=== PATIENT | female | born 1970 | race Caucasian/White ===

== ENCOUNTER 2017-05-31 20:36 | Observation (INO) ==
[2017-05-31] MEDS ORDERED: Isovue-370 500 ML INFUS..BTL IV ONE (20:50)
[2017-05-31] MEDS ORDERED: *HR* OxyCODONE/APAP 5/325 TABLET PO ONE (20:51)
[2017-05-31] MEDS ORDERED: Ondansetron 4 MG/2 ML VIAL IVP ONE (20:51)
[2017-05-31] MEDS ORDERED: *HR* LORazepam 2 MG/ML VIAL IVP ONE (20:51)
[2017-05-31 20:57] LABS: Bilirubin,Urine Small (Negative); Blood,Urine Moderate (Negative); Color,Urine Yellow (Yellow); Glucose,Urine (UA) Normal (Normal); Ketones,Urine >=160 mg/dL (Negative); Leukocyte Esterase,Urine Negative (Negative); Nitrite,Urine Negative (Negative); Protein,Urine 100 mg/dL (Neg-Trace); Specific Gravity,Urine > 1.030 (1.010-1.025); Urobilinogen,Urine Normal (Normal)
[2017-05-31 20:59] LABS: Bacteria,Urine Few per hpf (None-Few); Hyaline Casts,Urine Few per lpf (None-Few); Squamous Epithelial Cell,Urine Many per lpf (None-Few)
[2017-05-31] MEDS ORDERED: 0.9 % Sodium Chloride 1,000 ML IVC SCH (21:00)
[2017-05-31 21:01] LABS: Clarity,Urine Slightly Hazy (Clear)
[2017-05-31 21:03] LABS: RBC,Urine 0-3 per hpf (0-3)
[2017-05-31 21:35] LABS: Basophils # 0.1 K/mcL (0.0-0.2); Basophils % 0.7 %; Eosinophils % 0.2 %; Hematocrit 34.1 % (35.3-44.9); Hemoglobin 10.3 g/dL (11.5-15.4); Immature Granulocytes % 0.7 % (0-4); Lymphocytes # 1.3 K/mcL (0.6-4.6); Lymphocytes % 10.7 %; Mean Corpuscular HGB Conc 30.2 g/dL (31.6-35.5); Mean Corpuscular Hemoglobin 22.4 pg (28.0-33.3); Mean Corpuscular Volume 74.1 fL (83.0-100.0); Mean Platelet Volume 9.4 fL (9.4-12.4); Monocytes # 1.3 K/mcL (0.0-1.3); Monocytes % 10.6 %; Neutrophils # 9.5 K/mcL (1.6-8.9); Platelet Count 497 K/mcL (140-400); Red Cell Distribution Width 18.4 % (11.5-14.5); Segmented Neutrophils % 77.1 %
[2017-05-31 21:54] LABS: Alanine Aminotransferase 13 Units/L (7-52); Albumin 3.8 g/dL (3.5-5.7); Albumin/Globulin Ratio 1.1 (1.1-2.2); Alkaline Phosphatase 83 Units/L (34-104); Amylase 27 Units/L (29-103); Aspartate Amino Transferase 30 Units/L (13-39); BUN/Creatinine Ratio 24 (6-26); Bilirubin,Direct 0.3 mg/dL (0.0-0.2); Bilirubin,Indirect 0.3 mg/dL (0.0-1.2); Bilirubin,Total 0.6 mg/dL (0.3-1.0); Blood Urea Nitrogen 13 mg/dL (6-20); Carbon Dioxide 20 mEq/L (23-29); Chloride 101 mEq/L (98-107); Globulin 3.6 g/dL (2.4-3.5); Glucose 89 mg/dL (70-105); Lipase 8 Units/L (11-82); Osmolality,Calculated 282 (280-300); Potassium 4.2 mEq/L (3.5-5.1); Sodium 136 mEq/L (136-145); Total Protein 7.4 g/dL (6.4-8.9); eGFR For African Americans > 60 (> 60); eGFR For Non-African Americans > 60 (> 60)
--- NOTE | 2017-06-01 00:03 | Emergency Department Note ---
Disposition Clinical Impression: Abdominal pain Qualifiers: Abdominal location: generalized Qualified Code(s): R10.84 - Generalized abdominal pain Disposition: Admitted As Inpatient Condition: Undetermined Abdominal Pain HPI - General Chief Complaint: ED Abdominal Pain Stated Complaint: ABD Pain Time Seen by Provider: 05/31/17 20:48 Source: patient Nursing Notes Reviewed: Yes Vital Signs Reviewed: Yes - History of Present Illness HPI Narrative: This is a 47-year-old female presents with concern for abdominal pain. He onset of her symptoms was 7 days ago. She admits to intermittent crampy abdominal pain which comes and goes in a migratory fashion across her abdomen. She has no vomiting of blood or hematochezia. She has no fever or chills. She has no history of vaginal discharge or urinary symptoms. General: No acute distress HEENT: Pupils equal and reactive to light, extraoccular muscle movement is normal, TMS are clear bilaterally. Heart: RRR, No murmor rub or gallop Lungs: lungs clear, no wheezing, rales or ronchi. ABD: Diffusely tender without peritonitis Extremities: No cyanosis, clubbing or edema Neuro: CN 2-12 in tact, no focal deficit. strength 5/5. 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 Patient will be admitted for pain control pending transfer to the [facility]. I did speak with the transfer nurse to stated there are no available beds at the [facility] at this time and will call back at 3 AM and follow- up with the patient on the floor and coordinate transfer once a bed is available. Again the patient has been referred to the [facility] for gynecological oncological evaluation which we do not offer here. Pain Scale: 5 - Related Data Home Medications Medication Instructions Recorded Confirmed No Known Home Drugs 06/01/17 06/01/17 Allergies Allergy/AdvReac Type Severity Reaction Status Date / Time No Known Allergies Allergy Verified 05/31/17 20:40 All systems ED: reviewed and negative except as stated. Review of Systems: As Per HPI Abdominal Pain PMH - Past Medical History Medical history: Reports: migraine Female Surgical History: Reports: no surgical history Psychiatric history: Reports: depression - Social History Smoking status: Never smoker Alcohol use: Reports: none Drug use: Reports: none Physical Exam - General Limitations: no limitations General appearance: alert, in no apparent distress Course Vital Signs Temperature 98.9 F 05/31/17 20:37 Pulse Rate 84 05/31/17 20:37 Respiratory Rate 16 05/31/17 20:37 Blood Pressure 128/84 05/31/17 20:37 O2 Sat by Pulse Oximetry 99 05/31/17 20:37 Temperature 98.7 F 06/01/17 19:48 Pulse Rate 109 06/01/17 19:48 Respiratory Rate 16 06/01/17 19:48 Blood Pressure 112/76 06/01/17 19:48 O2 Sat by Pulse Oximetry 95 06/01/17 19:48 Oxygen Delivery Oxygen Delivery Room Air Abdominal Pain - Lab Data Result diagrams: 05/31/17 21:25 05/31/17 21:25 Lab Results 05/31/17 05/31/17 05/31/17 Range/Units 20:45 20:45 21:25 WBC 12.3 H (4.3-11.1) K/mcL RBC 4.60 (3.82-4.97) M/mcL Hgb 10.3 L (11.5-15.4) g/dL Hct 34.1 L (35.3-44.9) % MCV 74.1 L (83.0-100.0) fL MCH 22.4 L (28.0-33.3) pg MCHC 30.2 L (31.6-35.5) g/dL RDW 18.4 H (11.5-14.5) % Plt Count 497 H (140-400) K/mcL MPV 9.4 (9.4-12.4) fL Immature Gran % 0.7 (0-4) % Seg Neutrophils % 77.1 % Lymphocytes % 10.7 % Monocytes % 10.6 % Eosinophils % 0.2 % Basophils % 0.7 % Neutrophils # 9.5 H (1.6-8.9) K/mcL Lymphocytes # 1.3 (0.6-4.6) K/mcL Monocytes # 1.3 (0.0-1.3) K/mcL Eosinophils # 0.0 (0.0-0.6) K/mcL Basophils # 0.1 (0.0-0.2) K/mcL Sodium (136-145) mEq/L Potassium (3.5-5.1) mEq/L Chloride (98-107) mEq/L Carbon Dioxide (23-29) mEq/L BUN (6-20) mg/dL Creatinine (0.60-1.20) mg/dL Est GFR ( Amer) (> 60) Est GFR (Non-Af Amer) (> 60) BUN/Creatinine Ratio (6-26) Glucose (70-105) mg/dL Calculated Osmolality (280-300) Calcium (8.6-10.3) mg/dL Total Bilirubin (0.3-1.0) mg/dL Direct Bilirubin (0.0-0.2) mg/dL Indirect Bilirubin (0.0-1.2) mg/dL AST (13-39) Units/L ALT (7-52) Units/L Alkaline Phosphatase (34-104) Units/L Serum Total Protein (6.4-8.9) g/dL Albumin (3.5-5.7) g/dL Globulin (2.4-3.5) g/dL Albumin/Globulin Ratio (1.1-2.2) Amylase (29-103) Units/L Lipase (11-82) Units/L Ur Specimen Adequacy See below A Urine Color Yellow (Yellow) Urine Clarity Slightly Hazy (Clear) Urine pH 6.0 (5.0-8.0) pH Units Ur Specific [place] > 1.030 H (1.010-1.025) Urine Protein 100 H (Neg-Trace) mg/dL Urine Glucose (UA) Normal (Normal) mg/dL Urine Ketones >=160 H (Negative) mg/dL Urine Blood Moderate H (Negative) Urine Nitrite Negative (Negative) Urine Bilirubin Small H (Negative) Urine Urobilinogen Normal (Normal) mg/dL Ur Leukocyte Esterase Negative (Negative) Urine Microscopic RBC 0-3 (0-3) per hpf Urine Microscopic WBC 5-15 H (0-3) per hpf Ur Squamous Epith Cells Many H (None-Few) per lpf Urine Bacteria Few (None-Few) per hpf Hyaline Casts Few (None-Few) per lpf Ur Culture Indicated? NO (NO) Urine Test Negative (Negative) 05/31/17 Range/Units 21:25 WBC (4.3-11.1) K/mcL RBC (3.82-4.97) M/mcL Hgb (11.5-15.4) g/dL Hct (35.3-44.9) % MCV (83.0-100.0) fL MCH (28.0-33.3) pg MCHC (31.6-35.5) g/dL RDW (11.5-14.5) % Plt Count (140-400) K/mcL MPV (9.4-12.4) fL Immature Gran % (0-4) % Seg Neutrophils % % Lymphocytes % % Monocytes % % Eosinophils % % Basophils % % Neutrophils # (1.6-8.9) K/mcL Lymphocytes # (0.6-4.6) K/mcL Monocytes # (0.0-1.3) K/mcL Eosinophils # (0.0-0.6) K/mcL Basophils # (0.0-0.2) K/mcL Sodium 136 (136-145) mEq/L Potassium 4.2 (3.5-5.1) mEq/L Chloride 101 (98-107) mEq/L Carbon Dioxide 20 L (23-29) mEq/L BUN 13 (6-20) mg/dL Creatinine 0.55 L (0.60-1.20) mg/dL Est GFR ( Amer) > 60 (> 60) Est GFR (Non-Af Amer) > 60 (> 60) BUN/Creatinine Ratio 24 (6-26) Glucose 89 (70-105) mg/dL Calculated Osmolality 282 (280-300) Calcium 9.0 (8.6-10.3) mg/dL Total Bilirubin 0.6 (0.3-1.0) mg/dL Direct Bilirubin 0.3 H (0.0-0.2) mg/dL Indirect Bilirubin 0.3 (0.0-1.2) mg/dL AST 30 (13-39) Units/L ALT 13 (7-52) Units/L Alkaline Phosphatase 83 (34-104) Units/L Serum Total Protein 7.4 (6.4-8.9) g/dL Albumin 3.8 (3.5-5.7) g/dL Globulin 3.6 H (2.4-3.5) g/dL Albumin/Globulin Ratio 1.1 (1.1-2.2) Amylase 27 L (29-103) Units/L Lipase 8 L (11-82) Units/L Ur Specimen Adequacy Urine Color (Yellow) Urine Clarity (Clear) Urine pH (5.0-8.0) pH Units Ur Specific [place] (1.010-1.025) Urine Protein (Neg-Trace) mg/dL Urine Glucose (UA) (Normal) mg/dL Urine Ketones (Negative) mg/dL Urine Blood (Negative) Urine Nitrite (Negative) Urine Bilirubin (Negative) Urine Urobilinogen (Normal) mg/dL Ur Leukocyte Esterase (Negative) Urine Microscopic RBC (0-3) per hpf Urine Microscopic WBC (0-3) per hpf Ur Squamous Epith Cells (None-Few) per lpf Urine Bacteria (None-Few) per hpf Hyaline Casts (None-Few) per lpf Ur Culture Indicated? (NO) Urine Test (Negative)
[2017-06-01] MEDS: *HR* OxyCODONE/APAP 5/325 TABLET PO SCH ×2 (00:44→04:38)
[2017-06-01] MEDS ORDERED: *HR* OxyCODONE/APAP 5/325 TABLET PO ONE (00:56)
[2017-06-01] MEDS ORDERED: Naloxone 0.4 MG/ML INJ IVP PRN (04:38)
[2017-06-01] MEDS ORDERED: Acetaminophen 325 MG TABLET PO PRN (04:38)
[2017-06-01] MEDS ORDERED: *HR* OxyCODONE/APAP 5/325 TABLET PO PRN ×2 (04:43→15:14)
[2017-06-01] MEDS: 0.9 % Sodium Chloride 1,000 ML IVC SCH ×2 (05:00→12:31)
[2017-06-01] MEDS: *HR* Heparin 5,000 UNIT/ML VIAL SQ SCH ×2 (05:18→18:40)
--- NOTE | 2017-06-01 05:24 | Internal Med History&Physical ---
Date of Encounter: 06/01/17 Time of Encounter: 04:10 Internal Medicine - H&P: HPI Chief complaint: abdominal pain Admitted From: Emergency Dept Plans for Post Hospital Care: Transfer Other History of present illness: Ms. Anderson is a 47 year old female who presents with a one to one and one half week history of intense abdominal pain, cramping, diarrhea, and vomiting. She developed a fever yesterday as well. Because of persistent and worsening abdominal pain and new onset fever, she came to ER for evaluation. Work up in the ER included a CT scan of the abdomen and pelvis which revealed patient to have findings concerning for metastatic disease, likely of gynecologic origin. Dr. Chen contacted [facility] for transfer for gynecologic oncology workup. They accepted patient in transfer, but there are no beds available at this time. They requested patient be admitted here for pain control and stabilization until a bed opens up for transfer. Dr. Chen asked me to admit patient for pain control with eventual transfer to [facility]. Upon my assessment of the patient, she reiterates the above history. In addition, she states she has had parasites in her stool the last few days which she describes as tapeworms. She has never had a parasitic infection of her stool. 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 Her most recent travel out of the [place] was about a year and a half ago where she went to [place]. She denies any ingestion of undercooked meats, raw fish, or exotic foods. Regarding her gynecologic history, she has never used control and has never been able to conceive. She and her tried to conceive, but she has been told in the past that she is infertile. She has not seen a water pollution control technician in several years and has not had any routine ERP CONSULTANT exams in over 20 years. Her menstrual cycles have been changing over the last year or so as they have been less frequent, irregular, and associated with hot flashes. She thought she was going through menopause. She does admit that she has gained roughly 25 pounds in the last year and a half. Past Med Surg Social Fam HX - Past Medical History Attestation: Yes The following information was validated with the patient. Source: patient, old records reviewed Medical history: migraine Psychiatric history: depression - Past Surgical History Surgical History: no surgical history - Social History Smoking Status: Never smoker Alcohol use: none Drug use: none Current living situation: Home, With Family Activity Level: Independent ambulation Recent Out of Country Travel Within the Last 8 Weeks: No - Family History Mother Living Status: Still Living Hx Family Cancer: No Hx Family Genitourinary Disorders: No Internal Medicine - H&P: Meds 3 Allergy/AdvReac Type Severity Reaction Status Date / Time No Known Allergies Allergy Verified 05/31/17 20:40 - Constitutional Constitutional: chills, fever(s), weight gain, no night sweats - EENT Eyes: no blurry vision, no change in vision Ears: no ear pain, no tinnitus Nose, mouth and throat: no nasal congestion, no sinus pressure, no sore throat - Cardiovascular Cardiovascular ROS IM: no chest pain, no dyspnea, no dyspnea on exertion, no palpitations - Respiratory Respiratory: no cough, no hemoptysis, no dyspnea on exertion, no chest congestion, no excessive phlegm production, no change in phlegm color - Gastrointestinal Gastrointestinal: abdominal pain, bloating, change in bowel habits, diarrhea, vomiting, no hematemesis, no hematochezia, no melena Additional comments: + parasites/tapeworms noted in stool - Genitourinary Genitourinary: hot flashes, light periods, no dysuria, no flank pain - Musculoskeletal Musculoskeletal ROS IM: no arthralgias, no back pain - Integumentary Integumentary IM: no rash, no jaundice - Neurological Neurological ROS: no disequilibrium, no dizziness, no focal weakness, no frequent falls, no headache(s) - Psychiatric Psychiatric: no anxiety, no depression - Endocrine Endocrine IM: no polydipsia, no polyuria - Hematologic/Lymphatic Hematologic/Lymphatic: no easy bruising, no lymphadenopathy - Allergic/Immunologic Allergic/Immunologic: no wheezing, no GI upset with certain foods - Constitutional Vitals: Temp Pulse Resp BP Pulse Ox 98.7 F 100 15 107/74 97 06/01/17 04:12 06/01/17 04:12 06/01/17 04:12 06/01/17 04:12 06/01/17 04:12 General appearance: Present: cooperative, mild distress, A&O X 3, pleasant, answers questions appropriately - Head Head exam: Present: atraumatic, normal inspection - Eye Eye exam: Present: EOMI, normal appearance, PERRL. Absent: scleral icterus Pupils: Present: normal accommodation - ENT ENT exam: Present: mucous membranes dry, normal exam, normal oropharynx - Neck Neck exam general surgery: Present: full ROM, supple. Absent: tenderness, nuchal rigidity, thyromegaly - Respiratory Respiratory exam: Present: CTAB. Absent: chest wall tenderness, rales, respiratory distress, rhonchi, wheezes - Cardiovascular Cardiovascular exam: Present: RRR, +S1, +S2. Absent: diastolic murmur, systolic murmur - GI/Abdominal GI/Abdominal exam: Present: distended, normal bowel sounds, tenderness ( moderate diffuse), no peritoneal signs. Absent: guarding, hepatomegaly, mass ( not appreciated), rebound, rigid, splenomegaly - Extremities Exam Extremities exam: Present: full ROM, normal capillary refill, radial pulses palpable and symmetrical. Absent: calf tenderness, joint swelling, tenderness, warm - Back Exam Back exam: Present: normal inspection. Absent: CVA tenderness (L), CVA tenderness (R) - Neurological Exam Neurological exam: Present: alert, CN II-XII intact, oriented X3, no focal deficits, strengths equal and symetr throughout - Psychiatric Psychiatric exam: Present: normal affect, normal mood - Skin Skin exam: Present: dry, warm. Absent: rash Internal Med - H&P Results - Labs CBC & Chem 7: 05/31/17 21:25 05/31/17 21:25 - Diagnostic Studies CT scan - abdomen Additional comments: Report reviewed -- multiple intraabdominal and pelvic masses - Assessment and plan (1) Pelvic mass in female Current Visit: Yes Status: Acute Assessment and plan: 1. 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 2. [facility] has accepted patient but no beds presently available. 3. Will treat pain and nausea and dehydration. 4. Await transfer to [facility] once bed available. (2) Parasites in stool Current Visit: Yes Status: Acute Assessment and plan: 1. Will order stool GI panel, stool ova and parasites, and Hepatitis panel. 2. May need GI and/or ID consults if positive. (3) Abdominal pain Current Visit: Yes Status: Acute Assessment and plan: 1. 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 2. Pain responded to Percocet -- will continue. 3. Nausea control. Qualifiers: Abdominal location: generalized Qualified Code(s): R10.84 - Generalized abdominal pain (4) DVT prophylaxis Current Visit: Yes Status: Acute Assessment and plan: 1. Heparin SQ.
[2017-06-01 06:30] LABS: Albumin 3.3 g/dL (3.5-5.7); Albumin/Globulin Ratio 1.1 (1.1-2.2); Bilirubin,Direct 0.2 mg/dL (0.0-0.2); Bilirubin,Indirect 0.3 mg/dL (0.0-1.2); Bilirubin,Total 0.5 mg/dL (0.3-1.0); Globulin 3.1 g/dL (2.4-3.5); Total Protein 6.4 g/dL (6.4-8.9)
[2017-06-01 06:44] LABS: Hepatitis B Surface Antigen Nonreactive (Nonreactive)
[2017-06-01] MEDS ORDERED: *HR* FentaNYL (PF) 100 MCG/2 ML VIAL IVP PRN (09:36)
[2017-06-01 10:17] LABS: Bilirubin,Urine Small (Negative); Blood,Urine Negative (Negative); Clarity,Urine Clear (Clear); Color,Urine Yellow (Yellow); Glucose,Urine (UA) Normal (Normal); Ketones,Urine >=160 mg/dL (Negative); Leukocyte Esterase,Urine Negative (Negative); Nitrite,Urine Negative (Negative); Protein,Urine 30 mg/dL (Neg-Trace); Specific Gravity,Urine > 1.030 (1.010-1.025); Urobilinogen,Urine Normal (Normal)
[2017-06-01 10:20] LABS: Bacteria,Urine None Seen per hpf (None-Few); Hyaline Casts,Urine None Seen per lpf (None-Few); Squamous Epithelial Cell,Urine Many per lpf (None-Few)
--- NOTE | 2017-06-01 10:44 | Event Note ---
<Lucius Sanchez - Last Filed: 06/01/17 11:28> Date of Encounter: 06/01/17 Time of Encounter: 09:00 Admitted after midnight. Patient was seen and examined this morning at bedside. She reports good pain control at this time and has no other symptoms. Admits to constipation. Awaiting transfer to [facility], however no beds available yet. Patient has been accepted for gynecological oncology for mass seen on CT in ED. Exam: RRR, no mumurs Moist mucus membranes Lungs CTA Positive abdominal pain and distention diffusely. No guarding or rebound. BS+ No peripheral edema. Plan Pelvic Mass - Pending transfer to [facility] for human resources office manager/onc, awaiting bed availability - Symptomatic treatment with tylenol, percocet, IVF Reported history of parasites - Self reported history of tapeworm with positive foreign travel in the past. - Stool studies pending - Will give stool softener for constipation <Abdoulaye Ramos - Last Filed: 06/01/17 19:29> Date of Encounter: 06/01/17 I examined this patient and my medical decision-making was reviewed with the Resident Physician Dr. Sanchez. I agree with the documented findings, disposition and treatment plan as described except to the extent set forth below. Please reviewed my discharge summary.
--- NOTE | 2017-06-01 19:17 | Discharge Summary ---
- NOTES TO OUTPATIENT PROVIDER Notes to Outpatient Provider: Transferred to [facility] Orders not resulted at time of discharge: Pending orders 06/01/17 04:38 GI Panel,Stool [MOLMIC] Routine Ova & Parasite Exam Routine 06/01/17 04:49 Hepatitis Prof.(Routine A,B,C) Routine 06/02/17 04:00 Activated Partial Thrombo Time [COAG] AM 0400 BMP [Basic Metabolic Panel] AM 0400 Complete Blood Count [HEME] AM 0400 Comprehensive Metabolic Panel AM 0400 Lipid Panel AM 0400 Magnesium AM 0400 Prothrombin Time INR [COAG] AM 0400 Date of Encounter: 06/01/17 Time of Encounter: 19:15 - Discharge Diagnosis (1) Pelvic mass in female Priority: Primary Status: Acute (2) Abdominal pain Priority: Primary Status: Acute Qualifiers: Abdominal location: generalized Qualified Code(s): R10.84 - Generalized abdominal pain (3) Parasites in stool Priority: Secondary Status: Acute (4) DVT prophylaxis Priority: Secondary Status: Acute Hospital course: Ms. Anderson is a 47 year old female who presents with a one to one and one half week history of intense abdominal pain, cramping, diarrhea, and vomiting.Work up in the ER included a CT scan of the abdomen and pelvis which revealed patient to have findings concerning for metastatic disease, likely of gynecologic origin. Dr. Chen contacted [facility] for transfer for gynecologic oncology workup. Since they do not have any beds available pt was admitted here for pain management and transfer to [facility] when they have bed available. Pt pain is well controlled with current medications. She is getting transferred to [facility] now. Talked to pt and her at bed side and explained to them about current care. - Time Spent with Patient Total time spent providing and/or coordinating discharge services: - Discharge Medications Home Medications: No Known Home Drugs 06/01/17 [History] Allergies/Adverse Reactions: 3 Allergy/AdvReac Type Severity Reaction Status Date / Time No Known Allergies Allergy Verified 05/31/17 20:40 Date of admission: 06/01/17 00:08 Primary care physician: PCP NONE - Constitutional Vitals: Temp Pulse Resp BP Pulse Ox 101 F H 110 15 120/78 98 06/01/17 15:20 06/01/17 15:20 06/01/17 15:20 06/01/17 15:20 06/01/17 15:20 General appearance: Present: cooperative, mild distress, A&O X 3, pleasant, answers questions appropriately - Head Head exam: Present: atraumatic, normal inspection - Neck Neck exam general surgery: Present: supple - Respiratory Respiratory exam: Present: CTAB. Absent: accessory muscle use, rales, rhonchi, wheezes - Cardiovascular Cardiovascular exam: Present: RRR, +S1, +S2. Absent: diastolic murmur, gallop, rubs, systolic murmur - GI/Abdominal GI/Abdominal exam: Present: distended, normal bowel sounds, soft, tenderness ( lower abdomen). Absent: rebound, rigid - Extremities Exam Extremities exam: Absent: calf tenderness, pedal edema, tenderness - Neurological Exam Neurological exam: Present: alert, oriented X3 - Psychiatric Psychiatric exam: Present: depressed - Patient Status Disposition: Transfer Other Condition: Undetermined - Discharge Instructions Follow Up With: NONE,PCP [Primary Care Provider] - Thaddeus Bowman [Family Provider] - - Diet and Activity Diet: advance to your usual diet
[2017-06-01 19:53] VITALS: BP 112/76
[2017-06-02 03:42] LABS: Hepatitis A Antibody IgM Nonreactive (Nonreactive); Hepatitis B Core IgM Nonreactive (Nonreactive); Hepatitis C Virus Antibody Nonreactive (Nonreactive)
== END 2017-06-01 20:25 | disposition other institution (70) ==
LOC: EMEROO 20:36 → 3ANU 20:36
PROVIDERS: ADMIT Pediatrics; ATTEND Internal Medicine